=== PATIENT | male | born 1960 | race Caucasian/White ===

== ENCOUNTER 2017-11-14 05:49 | Emergency (ER) | payer OTHER ==
[~2017-11-14] VITALS: Ht 175.3 cm; Wt 103.7 kg
[2017-11-14 05:52] VITALS: TEMP 37; Ht 175.3 cm; Wt 103.7 kg
[2017-11-14] MEDS ORDERED: ALBUT/IPRATROP 3MG/0.5MG NEB 3 ML VIAL INH STA (06:19)
[2017-11-14 06:51] LABS: BASO % 0.7 %; BASO ABS # 0.06 K/uL (0-0.2); EOS % 3.3 %; HEMATOCRIT 39.2 % (42-52); HEMOGLOBIN 13.6 g/dL (14.0-18.0); IG# 0.01 K/uL (0.00-0.02); LYMPH % 17.7 %; MEAN CELL VOLUME 95.8 fL (80-100); MEAN CORPUSCULAR HEMOGLOBIN 33.3 pg (25-34); MEAN CORPUSCULAR HGB CONC 34.7 g/dl (32-36); MEAN PLATELET VOLUME 9.5 fL (7.4-10.4); MONO % 11.3 %; MONO ABS # 1.02 K/uL (0.11-0.59); NEUT % 66.9 %; NEUT ABS # 6.06 K/uL (1.4-6.5); PLATELET COUNT 175 K/uL (130-400); RED CELL DISTRIBUTION WIDTH CV 12.7 % (11.5-14.5); RED CELL DISTRIBUTION WIDTH SD 44.2 fL (36.4-46.3); WHITE BLOOD COUNT 9.05 K/uL (4.8-10.8)
--- NOTE | 2017-11-14 07:01 | DIAGNOSTIC IMAGING REPORT ---
CHEST ONE VIEW PORTABLE HISTORY: 57 years-old Male cough, f/c acute cough with difficulty breathing COMPARISON: None available TECHNIQUE: Portable AP view the chest FINDINGS: Cardiac silhouette is upper limits of normal in size. Atherosclerosis of the aorta. No pneumothorax, pleural effusion, focal airspace consolidation or overt pulmonary edema. Bones of the chest appear grossly intact. Degenerative changes are seen within the shoulders and spine. IMPRESSION: No acute process. The above report was generated using voice recognition software. It may contain grammatical, syntax or spelling errors. Electronically signed by: Reji Espinal M.D. 11/14/2017 7:00 AM Dictated Date/Time: 11/14/2017 6:58 AM
[2017-11-14 07:17] LABS: INFLUENZA B ANTIGEN Neg for Influ B (NEG)
[2017-11-14] MEDS ORDERED: AMOXICILLIN/CLAVULANATE TAB 875 MG TAB PO ONE (07:30)
[2017-11-14 07:44] LABS: ALBUMIN 3.7 gm/dl (3.4-5.0); CALCIUM 8.6 mg/dl (8.5-10.1); CREATININE 0.86 mg/dl (0.60-1.40); POTASSIUM 4.1 mmol/L (3.5-5.1); TOTAL PROTEIN 7.4 gm/dl (6.4-8.2)
[2017-11-14] MEDS ORDERED: ALBUTEROL HFA 8 GM INHALER INH ONE (08:15)
[2017-11-14] MEDS ORDERED: DVN/160 PO (08:20)
[2017-11-14] MEDS ORDERED: LEVO200T6 PO (08:20)
[2017-11-14] MEDS ORDERED: LEVO25TA5 PO (08:20)
[2017-11-14] MEDS ORDERED: GLIM2TAB2 PO (08:20)
[2017-11-14] MEDS ORDERED: METF750T PO (08:20)
[2017-11-14] MEDS ORDERED: AMLO-114 PO (08:20)
[2017-11-14] MEDS ORDERED: ATOR-24 PO (08:20)
--- NOTE | 2017-11-14 08:20 | EMERGENCY ROOM VISIT NOTE ---
History Report prepared by Luis Alberto: Meng Paulson Under the Supervision of: Dr. Clair Fairbanks D.O. First contact with patient: 06:02 Chief Complaint: SINUS CONGESTION/PRESSURE Stated Complaint: SINUS,DIFFICULTY BREATHING History of Present Illness The patient is a 57 year old male who presents to the Emergency Room with complaints of constant sinus congestion beginning last week. The patient also complains of swelling over his sinuses. His symptoms started last week with a non-productive cough. He used a saline wash two days ago which improved his symptoms. The patient states that his symptoms worsened upon waking up today. He also complains of fatigue, headache, subjective fever, and sore throat. He states that he has been having difficulty breathing due to his stuffy nose. The patient denies known sick contacts. He states that he is prone to sinus issues at this time of year. He denies ear pain. The patient has a history of HTN, HLD, hypothyroid, and DM. He notes that he was only able to fill half of his medications lat week, and has not take medication for high cholesterol or diabetes within the past week. He has not checked his blood sugar recently. The patient is a smoker. He had a flu shot this year. Source of History: patient Onset: Last week Position: head (sinuses) Quality: other (congestion) Timing: constant Associated Symptoms: + fevers (subjective), + headache, + sorethroat, + cough (non-productive), + fatigue Note: The patient also complains of swelling over his sinuses. He denies ear pain. Review of Systems See HPI for pertinent positives & negatives. A total of 10 systems reviewed and were otherwise negative. Past Medical & Surgical Medical Problems: (1) Diabetes (2) HLD (hyperlipidemia) (3) HTN (hypertension) (4) Hypothyroid Family History No pertinent family history stated. Social History Smoking Status: Current Every Day Smoker Occupation Status: employed Current/Historical Medications Scheduled Amlodipine (Norvasc), 10 MG PO DAILY Amoxicillin & Pot Clavulanate (Augmentin 875-125 mg), 875 MG PO BID Atorvastatin (Lipitor), 40 MG PO DAILY Glimepiride (Glimepiride), 2 MG PO DAILY Levothyroxine Sodium (Levothyroxine Sodium), 25 MCG PO DAILY Levothyroxine Sodium (Levothyroxine Sodium), 200 MCG PO DAILY Metformin Hcl (Glucophage Er), 1,500 MG PO DAILYBB Valsartan (Diovan), 160 MG PO DAILY Allergies Coded Allergies: No Known Allergies (Unverified , 11/14/17) Physical Exam Vital Signs Date Time Temp Pulse Resp B/P (MAP) Pulse Ox O2 Delivery O2 Flow Rate FiO2 11/14/17 08:53 82 18 162/83 95 11/14/17 08:14 106 20 162/83 94 Room Air 11/14/17 06:07 Room Air 11/14/17 05:52 37.0 112 20 166/72 95 Room Air Physical Exam GENERAL: alert, well appearing, well nourished, no distress, non-toxic HEAD: Sinus tenderness to percussion. EYE EXAM: normal conjunctiva, PERRL and EOM's grossly intact OROPHARYNX: no exudate, no erythema, lips, buccal mucosa, and tongue normal and mucous membranes are moist NECK: supple, no nuchal rigidity, no adenopathy, non-tender LUNGS: Diminished breath sounds bilaterally. No wheezes, rhonchi or rales. Normal chest wall mechanics HEART: no murmurs, S1 normal and S2 normal ABDOMEN: abdomen soft, non-tender, normo-active bowel sounds, no masses, no rebound or guarding. BACK: Back is symmetrical on inspection and there is no deformity, no midline tenderness, no CVA tenderness. SKIN: no rashes and no bruising UPPER EXTREMITIES: upper extremities are grossly normal. LOWER EXTREMITIES: No pitting edema. NEURO EXAM: Normal sensorium, cranial nerves II-XII grossly intact, normal speech, no gross weakness of arms, no gross weakness of legs. Medical Decision & Procedures ER Provider Diagnostic Interpretation: Radiology results have been interpreted by the radiologist and reviewed by me. CHEST ONE VIEW PORTABLE FINDINGS: Cardiac silhouette is upper limits of normal in size. Atherosclerosis of the aorta. No pneumothorax, pleural effusion, focal airspace consolidation or overt pulmonary edema. Bones of the chest appear grossly intact. Degenerative changes are seen within the shoulders and spine. IMPRESSION: No acute process. The above report was generated using voice recognition software. It may contain grammatical, syntax or spelling errors. Electronically signed by: Reji Espinal M.D. 11/14/2017 7:00 AM Laboratory Results 11/14/17 06:36 Red Blood Count 4.09, Mean Corpuscular Volume 95.8, Mean Corpuscular Hemoglobin 33.3, Mean Corpuscular Hemoglobin Concent 34.7, Mean Platelet Volume 9.5, Neutrophils (%) (Auto) 66.9, Lymphocytes (%) (Auto) 17.7, Monocytes (%) (Auto) 11.3, Eosinophils (%) (Auto) 3.3, Basophils (%) (Auto) 0.7, Neutrophils # (Auto ) 6.06, Lymphocytes # (Auto) 1.60, Monocytes # (Auto) 1.02, Eosinophils # (Auto ) 0.30, Basophils # (Auto) 0.06 11/14/17 06:36 Test 11/14/17 06:25 11/14/17 06:36 Influenza Type A Antigen Neg for Influ A (NEG) Influenza Type B Antigen Neg for Influ B (NEG) White Blood Count 9.05 K/uL (4.8-10.8) Red Blood Count 4.09 M/uL (4.7-6.1) Hemoglobin 13.6 g/dL (14.0-18.0) Hematocrit 39.2 % (42-52) Mean Corpuscular Volume 95.8 fL (80-100) Mean Corpuscular Hemoglobin 33.3 pg (25-34) Mean Corpuscular Hemoglobin Concent 34.7 g/dl (32-36) Platelet Count 175 K/uL (130-400) Mean Platelet Volume 9.5 fL (7.4-10.4) Neutrophils (%) (Auto) 66.9 % Lymphocytes (%) (Auto) 17.7 % Monocytes (%) (Auto) 11.3 % Eosinophils (%) (Auto) 3.3 % Basophils (%) (Auto) 0.7 % Neutrophils # (Auto) 6.06 K/uL (1.4-6.5) Lymphocytes # (Auto) 1.60 K/uL (1.2-3.4) Monocytes # (Auto) 1.02 K/uL (0.11-0.59) Eosinophils # (Auto) 0.30 K/uL (0-0.5) Basophils # (Auto) 0.06 K/uL (0-0.2) RDW Standard Deviation 44.2 fL (36.4-46.3) RDW Coefficient of Variation 12.7 % (11.5-14.5) Immature Granulocyte % (Auto) 0.1 % Immature Granulocyte # (Auto) 0.01 K/uL (0.00-0.02) Anion Gap 9.0 mmol/L (3-11) Est Creatinine Clear Calc Drug Dose 109.8 ml/min Estimated GFR () 110.0 Estimated GFR (Non- 94.9 BUN/Creatinine Ratio 16.5 (10-20) Calcium Level 8.6 mg/dl (8.5-10.1) Total Bilirubin 0.6 mg/dl (0.2-1) Aspartate Amino Transf (AST/SGOT) 30 U/L (15-37) Alanine Aminotransferase (ALT/SGPT) 45 U/L (12-78) Alkaline Phosphatase 91 U/L (45-117) Total Protein 7.4 gm/dl (6.4-8.2) Albumin 3.7 gm/dl (3.4-5.0) Globulin 3.7 gm/dl (2.5-4.0) Albumin/Globulin Ratio 1.0 (0.9-2) Laboratory results per my review. Medications Administered Medications (Trade) Dose Ordered Sig/Leeann Route Start Time Stop Time Status Last Admin Dose Admin Albuterol/ Ipratropium (Duoneb) 3 ml NOW STAT INH 11/14/17 06:19 11/14/17 06:21 DC 11/14/17 06:42 3 ML Amoxicillin/ Clavulanate Potassium (Augmentin Tab) 875 mg ONE ONCE PO 11/14/17 07:30 11/14/17 07:31 DC 11/14/17 08:13 875 MG Albuterol (Ventolin Hfa Inhaler) 2 puffs NOW ONCE INH 11/14/17 08:15 11/14/17 08:16 DC 11/14/17 08:46 2 PUFFS ECG Indication: other (fatigue) Rate (beats per minute): 105 Rhythm: sinus tachycardia Findings: no acute ischemic change, no ectopy, other (Normal axis. Normal intervals. ) ED Course 608: The patient was evaluated in room B6. A complete history and physical exam was performed. 821: Patient states felt improved following nebulizer treatment. Discussed all results at bedside. Discussed antibiotics for acute sinusitis, MDI and spacer for cough and mild shortness of breath given history of tobacco abuse. Discussed symptoms to watch and return for, close follow-up with family doctor, he verbalized understanding was agreeable with plan. Medical Decision Differential diagnosis: Etiologies such as acute sinusitis, pneumonia, bronchitis, viral URI, strep pharyngitis, mastoiditis, mucormycosis, malignancy, as well as others were entertained. Patient with findings likely secondary to acute sinusitis. Patient afebrile here without significant leukocytosis, however given history of diabetes, acute facial pain and swelling and tenderness to percussion, will cover with antibiotics. Patient has had subjective fevers and chills at home. I do not suspect mucormycosis or other fungal infection. Discussed with patient at length need for tobacco cessation. Discussed use of MDI and spacer at home. We 'll avoid steroids given patient's diabetic status and current noncompliance with medications due to financial constraint. No evidence of DKA or HHNK. Doubt bacteremia/sepsis, doubt intracranial abscess or extension of infection, doubt meningitis/encephalitis. Patient well-appearing here otherwise, vital signs stable, tolerating by mouth, and ambulated with a steady gait, no other symptoms to suggest CVA or other neurologic process. Doubt deep space infection , strep pharyngitis, esophagitis, ACS, perforation, dissection. Medication Reconcilliation Current Medication List: was personally reviewed by me Blood Pressure Screening Patient's blood pressure: Elevated blood pressure Blood pressure disposition: Referred to PCP Impression Primary Impression: Acute sinusitis Additional Impressions: Hyperglycemia Noncompliance Tobacco abuse Scribe Attestation The scribe's documentation has been prepared under my direction and personally reviewed by me in its entirety. I confirm that the note above accurately reflects all work, treatment, procedures, and medical decision making performed by me. Departure Information Dispostion Home / Self-Care Prescriptions Amoxicillin & Pot Clavulanate (Augmentin 875-125 mg) 1 Tab Tab 875 MG PO BID for 7 Days, TAB Prov: Clair Fairbanks, 11/14/17 Referrals No Doctor, Assigned (PCP) Patient Instructions My [facility] Additional Instructions Please follow up with your family doctor. Please take the antibiotics as prescribed. Please drink plenty of water. Please consider taking a probiotic while you're on antibiotics. You may use the inhaler and spacer up to every 4 hours as needed for shortness of breath/wheezing/coughing fits. If you have any worsening facial pain or swelling, develop worsening headaches, persistent fevers or chills, vomiting, dizziness, trouble swallowing, noticed blood in your sputum, develop vomiting or diarrhea, chest pain, you've any other new concerns, please return the emergency room. Problem Qualifiers Primary Impression: Acute sinusitis Sinusitis location: unspecified location Recurrence: non-recurrent Qualified Codes: J01.90 - Acute sinusitis, unspecified
[2017-11-14] MEDS ORDERED: AMOX875T PO (08:22)
[2017-11-14 08:53] VITALS: BP 162/83; PULSE 82; O2SAT 95
== END 2017-11-14 08:50 | disposition home or self-care (01) ==
LOC: C.EDB 05:50
DX: J01.90 Acute sinusitis, unspecified (principal); E11.65 Type 2 diabetes mellitus with hyperglycemia; I10 Essential (primary) hypertension; E78.5 Hyperlipidemia, unspecified; E03.9 Hypothyroidism, unspecified; Z91.14 Patient's other noncompliance with medication regimen; F17.210 Nicotine dependence, cigarettes, uncomplicated; Z79.84 Long term (current) use of oral hypoglycemic drugs; Z79.899 Other long term (current) drug therapy